=== PATIENT | female | born 1980 | race Caucasian/White ===

== ENCOUNTER 2017-03-01 16:07 | Emergency (ER) | payer OTHER ==
[~2017-03-01] VITALS: Ht 167.6 cm; Wt 85.7 kg
[~2017-03-01 16:07] MED LIST: DIPH-423 PO; METH32TA2 PO; RANI-366 PO
[2017-03-01] MEDS ORDERED: ketorolac trometh inj. 60 MG/2 ML VIAL IM ONE (16:25)
[2017-03-01] MEDS ORDERED: orphenadrine citrate 60mg/2ml inj. IM ONE (16:25)
[2017-03-01] MEDS ORDERED: ORPH100T2 PO (16:26)
[2017-03-01 16:40] VITALS: BP 137/91
[2017-03-02] MEDS ORDERED: DIAZ10TA PO (03:37)
== END 2017-03-01 16:55 | disposition home or self-care (01) ==
LOC: ER 16:08
DX: M43.6 Torticollis (principal); G43.909 Migraine, unspecified, not intractable, without status migrainosus; Z88.0 Allergy status to penicillin; Z88.5 Allergy status to narcotic agent; Z91.010 Allergy to peanuts
CPT/HCPCS: 96372; 99284; J1885; J2360

== ENCOUNTER 2017-03-02 03:09 | Emergency (ER) | payer OTHER ==
[~2017-03-02] VITALS: Ht 167.6 cm; Wt 87.1 kg
[~2017-03-02 03:09] MED LIST changes: +ORPH100T2 PO
[2017-03-02] MEDS ORDERED: diazepam 5mg tablet PO ONE (03:30)
[2017-03-02] MEDS ORDERED: ketorolac trometh. 30mg/ml inj. IM ONE (03:35)
[2017-03-02] MEDS ORDERED: DIAZ10TA PO (03:37)
[2017-03-02 03:55] VITALS: BP 134/87
== END 2017-03-02 03:58 | disposition home or self-care (01) ==
LOC: ER 03:10
DX: M62.838 Other muscle spasm (principal); M54.2 Cervicalgia; G43.909 Migraine, unspecified, not intractable, without status migrainosus; G35 Multiple sclerosis; Z98.890 Other specified postprocedural states; Z91.010 Allergy to peanuts; Z88.0 Allergy status to penicillin; Z88.5 Allergy status to narcotic agent; Z79.899 Other long term (current) drug therapy
CPT/HCPCS: 96372; 99283; J1885

== ENCOUNTER 2017-10-25 13:29 | Emergency (ER) | payer OTHER ==
[~2017-10-25] VITALS: Ht 167.6 cm; Wt 84.2 kg
[~2017-10-25 13:29] MED LIST changes: +DIAZ10TA PO
[2017-10-25] MEDS ORDERED: ketorolac trometh inj. 60 MG/2 ML VIAL IM ONE (13:50)
[2017-10-25] MEDS ORDERED: CYCL-1 PO (13:59)
[2017-10-25 14:10] VITALS: BP 116/69
== END 2017-10-25 14:24 | disposition home or self-care (01) ==
LOC: ER 13:29
DX: M43.6 Torticollis (principal); G43.909 Migraine, unspecified, not intractable, without status migrainosus; G35 Multiple sclerosis; Z98.890 Other specified postprocedural states; Z79.899 Other long term (current) drug therapy; Z88.0 Allergy status to penicillin; Z88.5 Allergy status to narcotic agent; Z91.010 Allergy to peanuts
CPT/HCPCS: 96372; 99283; J1885

== ENCOUNTER 2017-12-29 12:10 | Emergency (ER) | payer OTHER ==
[~2017-12-29] VITALS: Ht 167.6 cm; Wt 96.0 kg
[~2017-12-29 12:10] MED LIST changes: +CYCL-1 PO
[2017-12-29 12:17] VITALS: BP 130/84
[2017-12-29] MEDS ORDERED: HYDR115S PO (12:51)
== END 2017-12-29 13:04 | disposition home or self-care (01) ==
LOC: ER 12:10
DX: R09.81 Nasal congestion (principal); R09.89 Other specified symptoms and signs involving the circulatory and respiratory systems; R05 Cough; J39.2 Other diseases of pharynx; G43.909 Migraine, unspecified, not intractable, without status migrainosus; Z88.0 Allergy status to penicillin; Z88.6 Allergy status to analgesic agent; Z91.010 Allergy to peanuts; Z79.899 Other long term (current) drug therapy; Z98.890 Other specified postprocedural states
CPT/HCPCS: 99283

== ENCOUNTER 2018-01-09 10:00 | Emergency (ER) | payer OTHER ==
[~2018-01-09] VITALS: Ht 167.6 cm; Wt 87.0 kg
[~2018-01-09 10:00] MED LIST changes: +HYDR115S PO
[2018-01-09 10:01] VITALS: BP 131/69
== END 2018-01-09 12:54 | disposition home or self-care (01) ==
LOC: ER 10:01
DX: J20.9 Acute bronchitis, unspecified (principal); G43.909 Migraine, unspecified, not intractable, without status migrainosus; Z88.0 Allergy status to penicillin; Z91.010 Allergy to peanuts; Z88.6 Allergy status to analgesic agent; Z79.899 Other long term (current) drug therapy; Z98.890 Other specified postprocedural states
CPT/HCPCS: 71045; 99283

== ENCOUNTER 2018-01-16 07:52 | Emergency (ER) | payer OTHER ==
[~2018-01-16] VITALS: Ht 167.6 cm; Wt 75.0 kg
[2018-01-16 08:34] LABS: BASOPHILS % (AUTO) 0.4 % (0-1); EOSINOPHILS % (AUTO) 0.6 % (0-6); HEMATOCRIT 37.3 % (35.0-45.0); HEMOGLOBIN 12.1 g/dl (12.0-16.0); LYMPHOCYTES # (AUTO) 0.9 X10'3 (1.1-4.8); MEAN CORPUSCULAR HGB CONC 32.5 % (33.0-36.5); MEAN CORPUSCULAR VOLUME 79.9 FL (78-98); MEAN PLATELET VOLUME 8.4 FL (7.4-10.4); MONOCYTES # (AUTO) 0.4 X10'3 (0-0.9); MONOCYTES % (AUTO) 8.3 % (2-12); NEUTROPHILS # (AUTO) 3.5 X10'3 (1.8-7.7); NEUTROPHILS % (AUTO) 72.7 % (42-75); PLATELET COUNT 342 X10'3 (140-440); RED BLOOD COUNT 4.67 X10'6 (4.20-5.60); RED CELL DISTRIBUTION WIDTH 14.9 % (11.5-14.5); WHITE BLOOD COUNT 4.9 X10'3 (4.5-11.0)
[2018-01-16 08:46] LABS: ALANINE AMINOTRANSFERASE 21 U/L (12-78); ALBUMIN 3.5 G/DL (3.4-5.0); ALBUMIN/GLOBULIN RATIO 0.9 (1.1-1.5); ALKALINE PHOSPHATASE 70 IU/L (46-116); ANION GAP 11 (8-16); ASPARTATE AMINO TRANSFERASE 17 U/L (10-37); BILIRUBIN,TOTAL 0.4 MG/DL (0.1-1.0); BLOOD UREA NITROGEN 10 MG/DL (7-18); BUN/CREATININE RATIO 11.8 (6.6-38.0); CALCIUM 8.3 MG/DL (8.5-10.1); CHLORIDE 103 MMOL/L (99-107); CREATININE 0.85 MG/DL (0.40-0.90); GLUCOSE 110 MG/DL (70-104); POTASSIUM 3.2 MMOL/L (3.5-5.1); PROTHROMBIN TIME 10.3 SECONDS (9.0-12.0); SODIUM 138 MMOL/L (135-145); TOTAL PROTEIN 7.3 G/DL (6.4-8.2); eGFR 75 ML/MIN
[2018-01-16] MEDS ORDERED: normal saline 1000ML IV soln IVB ONE ×2 (08:55)
[2018-01-16] MEDS ORDERED: loperamide 2mg capsule PO ONE (08:55)
[2018-01-16] MEDS ORDERED: ondansetron/PF 4mg/2ml inj IV ONE (08:55)
[2018-01-16] MEDS ORDERED: famotidine/PF 10 mg/ml inj IV ONE (08:55)
[2018-01-16 09:27] LABS: URINE HCG NEGATIVE (NEG)
[2018-01-16 09:34] LABS: CLARITY,URINE SLIGHTLY CLOUDY (Clear); COLOR,URINE YELLOW (Yellow); GLUCOSE, URINE NEGATIVE (Neg); KETONES,URINE TRACE mg/dl (Neg); LEUKOCYTE ESTERASE ,URINE NEGATIVE (Neg); NITRITES, URINE NEGATIVE (Neg); OCCULT BLOOD,URINE TRACE-INTACT (Neg); PH,URINE 6.5 (4.8-8.0); PROTEIN,URINE NEGATIVE (Neg)
[2018-01-16 09:36] LABS: UA COLLECTION TYPE CLN CATCH MIDSTREAM
[2018-01-16 09:40] LABS: MUCUS STRANDS MODERATE /LPF (Neg); SQUAMOUS EPITHELIAL CELL,UR MODERATE /LPF (FEW)
[2018-01-16 09:41] LABS: BACTERIA,URINE 1+ /HPF (Neg); WBC,URINE 0-4 /HPF (0-4)
[2018-01-16] MEDS ORDERED: ONDA8TAB13 PO (10:31)
[2018-01-16] MEDS ORDERED: PANT-47 PO (10:31)
[2018-01-16 10:53] VITALS: BP 125/72
== END 2018-01-16 10:55 | disposition home or self-care (01) ==
LOC: ER 07:53
DX: K52.9 Noninfective gastroenteritis and colitis, unspecified (principal); E86.0 Dehydration; Z88.0 Allergy status to penicillin; Z88.6 Allergy status to analgesic agent; Z91.010 Allergy to peanuts
CPT/HCPCS: 36415; 80053; 81001; 81025; 85025; 85610; 96361; 96374; 96375; 99284; J2405; J3490; J7030

== ENCOUNTER 2018-04-11 21:38 | Emergency (ER) | payer OTHER ==
[~2018-04-11] VITALS: Ht 167.6 cm; Wt 80.0 kg
[~2018-04-11 21:38] MED LIST changes: +ONDA8TAB13 PO; +PANT-47 PO
[2018-04-11 21:41] VITALS: BP 127/76
[2018-04-11] MEDS ORDERED: ibuprofen tablet 400 MG TABLET PO ONE (22:45)
== END 2018-04-11 23:05 | disposition home or self-care (01) ==
LOC: ER 21:39
DX: S00.531A Contusion of lip, initial encounter (principal); Z98.890 Other specified postprocedural states; Z88.0 Allergy status to penicillin; Z88.5 Allergy status to narcotic agent; Z91.010 Allergy to peanuts; Z79.899 Other long term (current) drug therapy; Y04.8XXA Assault by other bodily force, initial encounter; Y93.89 Activity, other specified; Y92.89 Other specified places as the place of occurrence of the external cause; Y99.8 Other external cause status
CPT/HCPCS: 99281; 99282

== ENCOUNTER 2018-07-15 11:11 | Outpatient (CLI) | payer OTHER ==
[2018-07-15] MEDS ORDERED: iohexol 300mg/ml 100ml inj. ONE (11:47)
[2018-07-15 13:14] LABS: BASOPHILS # (AUTO) 0.1 X10'3 (0-0.2); BASOPHILS % (AUTO) 0.6 % (0-1); EOSINOPHILS # (AUTO) 0.1 X10'3 (0-0.9); EOSINOPHILS % (AUTO) 1.6 % (0-6); HEMOGLOBIN 11.7 g/dl (12.0-16.0); LYMPHOCYTES # (AUTO) 1.6 X10'3 (1.1-4.8); LYMPHOCYTES % (AUTO) 16.6 % (21-51); MEAN CORPUSCULAR HEMOGLOBIN 25.8 PG (27.0-31.0); MEAN CORPUSCULAR HGB CONC 32.4 g/dL (33.0-36.5); MEAN CORPUSCULAR VOLUME 79.4 FL (78-98); MEAN PLATELET VOLUME 8.8 FL (7.4-10.4); MONOCYTES # (AUTO) 0.6 X10'3 (0-0.9); MONOCYTES % (AUTO) 6.2 % (2-12); PLATELET COUNT 307 X10'3 (140-440); RED BLOOD COUNT 4.53 X10'6 (4.20-5.60); RED CELL DISTRIBUTION WIDTH 16.7 % (11.5-14.5); WHITE BLOOD COUNT 9.4 X10'3 (4.5-11.0)
[2018-07-15 13:17] LABS: CLARITY,URINE CLEAR (Clear); COLOR,URINE STRAW (Yellow); GLUCOSE, URINE NEGATIVE (Neg); KETONES,URINE NEGATIVE (Neg); LEUKOCYTE ESTERASE ,URINE NEGATIVE (Neg); NITRITES, URINE NEGATIVE (Neg); OCCULT BLOOD,URINE NEGATIVE (Neg); PH,URINE 6.5 (4.8-8.0); PROTEIN,URINE NEGATIVE (Neg); UROBILINOGEN,URINE 0.2 E.U/dL (0.2-1.0)
[2018-07-15 13:25] LABS: UA COLLECTION TYPE CLN CATCH MIDSTREAM
[2018-07-15 13:28] LABS: ALANINE AMINOTRANSFERASE 18 U/L (12-78); ALBUMIN 3.6 G/DL (3.4-5.0); ALBUMIN/GLOBULIN RATIO 1.1 (1.1-1.5); ALKALINE PHOSPHATASE 54 IU/L (46-116); ANION GAP 6 (8-16); ASPARTATE AMINO TRANSFERASE 11 U/L (10-37); BILIRUBIN,TOTAL 0.3 MG/DL (0.1-1.0); BLOOD UREA NITROGEN 8 MG/DL (7-18); BUN/CREATININE RATIO 11.8 (6.6-38.0); CALCIUM 8.6 MG/DL (8.5-10.1); CHLORIDE 104 MMOL/L (99-107); CHOL/HDL RATIO 2.4 (0.00-4.99); CHOLESTEROL 140 MG/DL (0-200); CREATININE 0.68 MG/DL (0.40-0.90); GLUCOSE 85 MG/DL (70-104); HDL CHOLESTEROL 58 MG/DL (35-60); LDL CHOLESTEROL 72 MG/DL (50-100); POTASSIUM 3.7 MMOL/L (3.5-5.1); SODIUM 137 MMOL/L (135-145); TOTAL CARBON DIOXIDE 27.3 MMOL/L (24-32); TOTAL PROTEIN 6.8 G/DL (6.4-8.2); TRIGLYCERIDES 35 MG/DL (20-135); eGFR > 90 ML/MIN
== END 2018-07-15 23:59 | disposition home or self-care (01) ==
LOC: 64 CT 11:11
PROVIDERS: ATTEND Family Medicine
DX: G35 Multiple sclerosis (principal); F41.9 Anxiety disorder, unspecified; Z76.89 Persons encountering health services in other specified circumstances; Z98.890 Other specified postprocedural states
CPT/HCPCS: 36415; 70470; 80053; 80061; 81003; 84439; 84443; 85025; Q9967

== ENCOUNTER 2018-09-30 16:43 | Emergency (ER) | payer OTHER ==
[~2018-09-30] VITALS: Ht 167.6 cm; Wt 80.0 kg
[2018-09-30 17:16] VITALS: BP 117/69
[2018-09-30] MEDS ORDERED: CYCL-1 PO (17:34)
== END 2018-09-30 18:14 | disposition home or self-care (01) ==
LOC: ER 16:43
DX: S13.4XXA Sprain of ligaments of cervical spine, initial encounter (principal); M54.5 Low back pain; G43.909 Migraine, unspecified, not intractable, without status migrainosus; G35 Multiple sclerosis; Z98.890 Other specified postprocedural states; Z91.010 Allergy to peanuts; Z88.0 Allergy status to penicillin; Z88.5 Allergy status to narcotic agent; Z79.899 Other long term (current) drug therapy; V29.59XA Motorcycle passenger injured in collision with other motor vehicles in traffic accident, initial encounter; Y93.89 Activity, other specified; Y92.488 Other paved roadways as the place of occurrence of the external cause; Y99.8 Other external cause status
CPT/HCPCS: 99283

== ENCOUNTER 2019-03-09 22:07 | Emergency (ER) | payer OTHER ==
[~2019-03-09] VITALS: Ht 167.6 cm; Wt 84.0 kg
[2019-03-09 22:14] VITALS: BP 120/75
[2019-03-09 22:58] LABS: ALANINE AMINOTRANSFERASE 22 U/L (12-78); ALBUMIN 3.8 G/DL (3.4-5.0); ALKALINE PHOSPHATASE 69 IU/L (46-116); ANION GAP 12 (8-16); ASPARTATE AMINO TRANSFERASE 17 U/L (10-37); BILIRUBIN,TOTAL 0.3 MG/DL (0.1-1.0); BLOOD UREA NITROGEN 14 MG/DL (7-18); BUN/CREATININE RATIO 16.9 (6.6-38.0); CALCIUM 8.6 MG/DL (8.5-10.1); CHLORIDE 103 MMOL/L (99-107); CREATININE 0.83 MG/DL (0.40-0.90); GLUCOSE 104 MG/DL (70-104); POTASSIUM 3.4 MMOL/L (3.5-5.1); SODIUM 138 MMOL/L (135-145); TOTAL CARBON DIOXIDE 23.2 MMOL/L (24-32); TOTAL PROTEIN 7.5 G/DL (6.4-8.2); eGFR 77 ML/MIN
[2019-03-09 23:03] LABS: BASOPHILS # (AUTO) 0.1 X10'3 (0-0.2); BASOPHILS % (AUTO) 0.6 % (0-1); EOSINOPHILS # (AUTO) 0.1 X10'3 (0-0.9); EOSINOPHILS % (AUTO) 0.6 % (0-6); HEMATOCRIT 33.9 % (35.0-45.0); HEMOGLOBIN 10.9 g/dl (12.0-16.0); LYMPHOCYTES # (AUTO) 2.4 X10'3 (1.1-4.8); LYMPHOCYTES % (AUTO) 19.9 % (21-51); MEAN CORPUSCULAR HEMOGLOBIN 24.4 PG (27.0-31.0); MEAN CORPUSCULAR HGB CONC 32.2 g/dL (33.0-36.5); MEAN CORPUSCULAR VOLUME 75.8 FL (78-98); MEAN PLATELET VOLUME 8.4 FL (7.4-10.4); MONOCYTES # (AUTO) 0.5 X10'3 (0-0.9); MONOCYTES % (AUTO) 4.6 % (2-12); NEUTROPHILS # (AUTO) 8.8 X10'3 (1.8-7.7); NEUTROPHILS % (AUTO) 74.3 % (42-75); PLATELET COUNT 346 X10'3 (140-440); RED BLOOD COUNT 4.47 X10'6 (4.20-5.60); RED CELL DISTRIBUTION WIDTH 17.4 % (11.5-14.5); WHITE BLOOD COUNT 11.8 X10'3 (4.5-11.0)
[2019-03-09] MEDS ORDERED: normal saline 1000ML IV soln IVB ONE (23:05)
[2019-03-09] MEDS ORDERED: ondansetron/PF 4mg/2ml inj IV ONE (23:15)
== END 2019-03-10 00:53 | disposition home or self-care (01) ==
LOC: ER 22:09
DX: R07.89 Other chest pain (principal); R55 Syncope and collapse; G43.909 Migraine, unspecified, not intractable, without status migrainosus; G35 Multiple sclerosis; Z98.890 Other specified postprocedural states; Z98.51 Tubal ligation status; Z91.010 Allergy to peanuts; Z88.0 Allergy status to penicillin; Z88.5 Allergy status to narcotic agent; Z79.899 Other long term (current) drug therapy
CPT/HCPCS: 36415; 71045; 80053; 84484; 85025; 93005; 96361; 96374; 99284; J2405; J7030

== ENCOUNTER 2019-04-10 01:53 | Emergency (ER) | payer OTHER ==
[~2019-04-10] VITALS: Ht 167.6 cm; Wt 86.4 kg
[~2019-04-10 01:53] MED LIST changes: +dexamethasone sod phosphate 10mg/ml inj PO STA
[2019-04-10] MEDS ORDERED: ipratropium/albuterol 3ml nebule NEB ONE (01:55)
[2019-04-10] MEDS ORDERED: benzonatate 100mg capsule PO ONE (01:55)
[2019-04-10 02:02] VITALS: BP 105/7
== END 2019-04-10 02:55 | disposition home or self-care (01) ==
LOC: ER 01:53
DX: R05 Cough (principal); R06.02 Shortness of breath; R06.2 Wheezing; R09.81 Nasal congestion; G35 Multiple sclerosis; Z98.51 Tubal ligation status; Z98.890 Other specified postprocedural states; Z88.0 Allergy status to penicillin; Z88.5 Allergy status to narcotic agent; Z91.010 Allergy to peanuts; Z79.899 Other long term (current) drug therapy
CPT/HCPCS: 71045; 94640; 99283; J1100; 94760

== ENCOUNTER 2019-09-22 16:31 | Emergency (ER) | payer OTHER ==
[~2019-09-22] VITALS: Ht 167.6 cm; Wt 92.0 kg
[~2019-09-22 16:31] MED LIST changes: -dexamethasone sod phosphate 10mg/ml inj PO STA
[2019-09-22 16:34] VITALS: BP 131/82
== END 2019-09-22 17:31 | disposition home or self-care (01) ==
LOC: ER 16:32
DX: S40.811A Abrasion of right upper arm, initial encounter (principal); F03.90 Unspecified dementia, unspecified severity, without behavioral disturbance, psychotic disturbance, mood disturbance, and anxiety; G35 Multiple sclerosis; Z77.21 Contact with and (suspected) exposure to potentially hazardous body fluids; Z98.51 Tubal ligation status; Z98.890 Other specified postprocedural states; Z88.0 Allergy status to penicillin; Z88.5 Allergy status to narcotic agent; Z91.010 Allergy to peanuts; Z79.899 Other long term (current) drug therapy; W50.4XXA Accidental scratch by another person, initial encounter; Y93.89 Activity, other specified; Y92.89 Other specified places as the place of occurrence of the external cause; Y99.8 Other external cause status
CPT/HCPCS: 99282

== ENCOUNTER 2019-10-10 08:24 | Emergency (ER) | payer BC, OTHER ==
[~2019-10-10] VITALS: Ht 167.6 cm; Wt 88.6 kg
[2019-10-10 08:26] VITALS: BP 137/78
[2019-10-10] MEDS ORDERED: ONDA4TAB6 PO (09:09)
== END 2019-10-10 09:20 | disposition home or self-care (01) ==
LOC: EEVIPCON 08:25 → ER 08:25
DX: R50.9 Fever, unspecified (principal); R11.2 Nausea with vomiting, unspecified; R53.83 Other fatigue; G43.909 Migraine, unspecified, not intractable, without status migrainosus; Z98.51 Tubal ligation status; Z98.890 Other specified postprocedural states; Z88.0 Allergy status to penicillin; Z88.5 Allergy status to narcotic agent; Z91.010 Allergy to peanuts; Z79.899 Other long term (current) drug therapy
CPT/HCPCS: 36415; 99283

== ENCOUNTER 2020-06-09 08:54 | Outpatient (CLI) | payer BC ==
[~2020-06-09 08:54] MED LIST changes: +ONDA4TAB6 PO
[2020-06-09 09:47] LABS: CLARITY,URINE CLEAR (Clear); COLOR,URINE YELLOW (Yellow); GLUCOSE, URINE NEGATIVE (Neg); KETONES,URINE NEGATIVE (Neg); LEUKOCYTE ESTERASE ,URINE NEGATIVE (Neg); NITRITES, URINE NEGATIVE (Neg); OCCULT BLOOD,URINE TRACE-INTACT (Neg); PH,URINE 5.5 (4.8-8.0); PROTEIN,URINE NEGATIVE (Neg); UROBILINOGEN,URINE 0.2 E.U/dL (0.2-1.0)
[2020-06-09 09:47] LABS: BASOPHILS # (AUTO) 0.1 X10'3 (0-0.2); EOSINOPHILS # (AUTO) 0.1 X10'3 (0-0.9); EOSINOPHILS % (AUTO) 2.3 % (0-6); HEMATOCRIT 38.5 % (35.0-45.0); HEMOGLOBIN 12.9 g/dl (12.0-16.0); LYMPHOCYTES # (AUTO) 1.4 X10'3 (1.1-4.8); LYMPHOCYTES % (AUTO) 21.9 % (21-51); MEAN CORPUSCULAR HEMOGLOBIN 29.6 PG (27.0-31.0); MEAN CORPUSCULAR HGB CONC 33.5 g/dL (33.0-36.5); MEAN CORPUSCULAR VOLUME 88.2 FL (78-98); MONOCYTES # (AUTO) 0.5 X10'3 (0-0.9); MONOCYTES % (AUTO) 7.2 % (2-12); NEUTROPHILS # (AUTO) 4.3 X10'3 (1.8-7.7); NEUTROPHILS % (AUTO) 67.6 % (42-75); PLATELET COUNT 286 X10'3 (140-440); RED BLOOD COUNT 4.36 X10'6 (4.20-5.60); RED CELL DISTRIBUTION WIDTH 13.7 % (11.5-14.5); WHITE BLOOD COUNT 6.4 X10'3 (4.5-11.0)
[2020-06-09 09:57] LABS: UA COLLECTION TYPE CLN CATCH MIDSTREAM
[2020-06-09 09:58] LABS: BACTERIA,URINE FEW /HPF (Neg); HYALINE CASTS 0-3 /LPF (NEGATIVE); MUCUS STRANDS MODERATE /LPF (Neg); RBC,URINE 0-2 /HPF (0-2); SQUAMOUS EPITHELIAL CELL,UR MANY /LPF (FEW); WBC,URINE 0-4 /HPF (0-4)
[2020-06-09 10:07] LABS: ALANINE AMINOTRANSFERASE 23 U/L (12-78); ALBUMIN 3.4 G/DL (3.4-5.0); ALKALINE PHOSPHATASE 79 IU/L (46-116); ANION GAP 10 (8-16); ASPARTATE AMINO TRANSFERASE 18 U/L (10-37); BILIRUBIN,TOTAL 0.4 MG/DL (0.1-1.0); BLOOD UREA NITROGEN 12 MG/DL (7-18); BUN/CREATININE RATIO 17.9 (6.6-38.0); CALCIUM 8.4 MG/DL (8.5-10.1); CHLORIDE 108 MMOL/L (99-107); CHOL/HDL RATIO 2.4 (0.00-4.99); CHOLESTEROL 178 MG/DL (0-200); CREATININE 0.67 MG/DL (0.40-0.90); GLUCOSE 95 MG/DL (70-104); HDL CHOLESTEROL 73 MG/DL (35-60); LDL CHOLESTEROL 97 MG/DL (50-100); POTASSIUM 3.9 MMOL/L (3.5-5.1); SODIUM 143 MMOL/L (135-145); TOTAL CARBON DIOXIDE 24.6 MMOL/L (24-32); TOTAL PROTEIN 6.9 G/DL (6.4-8.2); TRIGLYCERIDES 53 MG/DL (20-135); eGFR > 90 ML/MIN
== END 2020-06-09 23:59 | disposition home or self-care (01) ==
LOC: LAB 08:54
PROVIDERS: ATTEND Family Medicine
DX: D64.9 Anemia, unspecified (principal); R53.83 Other fatigue; E07.9 Disorder of thyroid, unspecified; E78.5 Hyperlipidemia, unspecified; N30.90 Cystitis, unspecified without hematuria
CPT/HCPCS: 36415; 80053; 80061; 81001; 84439; 84443; 85025

== ENCOUNTER → 2020-08-16 | Day surgery (SDC) | payer BC ==
[2020-08-10 15:06] LABS: BASOPHILS % (AUTO) 0.5 % (0-1); EOSINOPHILS # (AUTO) 0.1 X10'3 (0-0.9); EOSINOPHILS % (AUTO) 1.5 % (0-6); LYMPHOCYTES % (AUTO) 11.8 % (21-51); MEAN CORPUSCULAR HEMOGLOBIN 30.4 PG (27.0-31.0); MEAN CORPUSCULAR HGB CONC 33.5 g/dL (33.0-36.5); MEAN CORPUSCULAR VOLUME 90.8 FL (78-98); MEAN PLATELET VOLUME 8.5 FL (7.4-10.4); MONOCYTES # (AUTO) 0.6 X10'3 (0-0.9); MONOCYTES % (AUTO) 6.3 % (2-12); NEUTROPHILS # (AUTO) 7.1 X10'3 (1.8-7.7); NEUTROPHILS % (AUTO) 79.9 % (42-75); PRE OP HEMATOCRIT 40.8 % (35.0-45.0); PRE OP HEMOGLOBIN 13.7 g/dL (12.0-16.0); PRE OP PLATELET COUNT 291 X10'3 (140-440); RED BLOOD COUNT 4.49 X10'6 (4.20-5.60); RED CELL DISTRIBUTION WIDTH 13.7 % (11.5-14.5)
[2020-08-10 15:18] LABS: PRE OP PROTIME 10.3 SECONDS (9.0-12.0)
[2020-08-10 15:21] LABS: ALBUMIN 3.6 G/DL (3.4-5.0); ALKALINE PHOSPHATASE 73 IU/L (46-116); BLOOD UREA NITROGEN 8 MG/DL (7-18); BUN/CREATININE RATIO 11.3 (6.6-38.0); CALCIUM 8.9 MG/DL (8.5-10.1); CHLORIDE 109 MMOL/L (99-107); CREATININE 0.71 MG/DL (0.40-0.90); PRE OP ALT 23 U/L (30-65); PRE OP ANION GAP 8 (8-16); PRE OP AST 10 U/L (10-37); PRE OP BILIRUB, TOTAL 0.3 MG/DL (0.0-1.0); PRE OP GLUCOSE 85 MG/DL (70-104); PRE OP POTASSIUM 3.4 MMOL/L (3.4-5.1); PRE OP SODIUM 143 MMOL/L (135-145); TOTAL CARBON DIOXIDE 26.3 MMOL/L (24-32); TOTAL PROTEIN 7.1 G/DL (6.4-8.2); eGFR > 90 ML/MIN
[2020-08-10 15:47] LABS: CLARITY,URINE CLOUDY (Clear); COLOR,URINE YELLOW (Yellow); GLUCOSE, URINE NEGATIVE (Neg); KETONES,URINE NEGATIVE (Neg); LEUKOCYTE ESTERASE ,URINE NEGATIVE (Neg); NITRITES, URINE POSITIVE (Neg); OCCULT BLOOD,URINE SMALL (Neg); PROTEIN,URINE NEGATIVE (Neg); UROBILINOGEN,URINE 0.2 E.U/dL (0.2-1.0)
[2020-08-10 15:47] LABS: HCG SERUM QL NEGATIVE
[2020-08-10 15:53] LABS: UA COLLECTION TYPE NON-SPECIFIED
[2020-08-10 15:54] LABS: BACTERIA,URINE 4+ /HPF (Neg); SQUAMOUS EPITHELIAL CELL,UR MANY /LPF (FEW)
[~2020-08-16] VITALS: Ht 167.6 cm; Wt 94.9 kg
[2020-08-16] VITALS (13 sets, daily range): BP systolic 117–145; BP diastolic 67–95
[~2020-08-16] MED LIST changes: -CYCL-1 PO; -DIAZ10TA PO; -DIPH-423 PO; +GENTAMICIN IV ONE; -HYDR115S PO; +LIDOcaine 2% (20mg/ml) 5ml vial ONE; -METH32TA2 PO; +NO HOME MEDS; +NORMAL SALINE IV ONE; -ONDA4TAB6 PO; -ONDA8TAB13 PO; -ORPH100T2 PO; -PANT-47 PO; -RANI-366 PO; +dexamethasone sod phosphate 4mg/ml inj. ONE; +famotidine 20mg tablet PO ONE; +fentaNYL/PF 50MCG/1 ML 2ML syringe ONE; +meperidine/PF 25mg/ml syringe IV PRN; +midazolam 1 mg/ML 2ml injection ONE; +morphine 2 MG/ML inj. syringe IV PRN; +morphine 4 MG/ML inj SYRINge IV PRN; +ondansetron/PF 4mg/2ml inj IV PRN; +ondansetron/PF 4mg/2ml inj ONE; +proCHLORperazine 10 MG/2 ml inj IV PRN; +propofol inj 20 ML IV ONE; +ringers solution, lacted 1,000 ML IV SCH; +sevoflurane 250ml liquid IH ONE; +vancomycin 1,500 MG in NS 300ml IV soln IV ONE
--- NOTE | 2020-08-16 07:49 | NUR ---
Received from OR via , accompanied by Anesthesiologist DR BARTLETT and report given by Anesthesiolgist. PT PRESENTS WITH PIV IN LEFT FOREARM, VSS. Addendum: 08/16/20 at 0802 by Kiana Stephens RN, RN Amended: Links added.
[2020-08-16] MEDS: meperidine/PF 25mg/ml syringe IV PRN ×2 (08:08→08:31)
== END | disposition home or self-care (01) ==
LOC: PAS 05:32
PROVIDERS: ATTEND Obstetrics & Gynecology
DX: N93.9 Abnormal uterine and vaginal bleeding, unspecified (principal); Z20.822 Contact with and (suspected) exposure to COVID-19; Z79.899 Other long term (current) drug therapy; Z79.01 Long term (current) use of anticoagulants; Z88.5 Allergy status to narcotic agent; Z88.0 Allergy status to penicillin; Z91.010 Allergy to peanuts; Z98.890 Other specified postprocedural states
CPT/HCPCS: 36415; 58353; 80053; 81001; 82948; 84703; 85025; 85610; 85730; 86885; 86900; 86901; J1100; J1580; J2001; J2175; J2250; J2405; J2704; J3010; J3370; J7030; J7040; U0003; U0005; A4355; A4618; A4649; J7120

== ENCOUNTER 2020-09-13 12:59 | Emergency (ER) | payer BC ==
[~2020-09-13] VITALS: Ht 167.6 cm; Wt 94.3 kg
[~2020-09-13 12:59] MED LIST changes: -GENTAMICIN IV ONE; -LIDOcaine 2% (20mg/ml) 5ml vial ONE; -NORMAL SALINE IV ONE; -dexamethasone sod phosphate 4mg/ml inj. ONE; -famotidine 20mg tablet PO ONE; -fentaNYL/PF 50MCG/1 ML 2ML syringe ONE; -meperidine/PF 25mg/ml syringe IV PRN; -midazolam 1 mg/ML 2ml injection ONE; -morphine 2 MG/ML inj. syringe IV PRN; -morphine 4 MG/ML inj SYRINge IV PRN; -ondansetron/PF 4mg/2ml inj IV PRN; -ondansetron/PF 4mg/2ml inj ONE; -proCHLORperazine 10 MG/2 ml inj IV PRN; -propofol inj 20 ML IV ONE; -ringers solution, lacted 1,000 ML IV SCH; -sevoflurane 250ml liquid IH ONE; -vancomycin 1,500 MG in NS 300ml IV soln IV ONE
[2020-09-13] MEDS ORDERED: ondansetron/PF 4mg/2ml inj IV ONE (13:15)
[2020-09-13] MEDS ORDERED: normal saline 1000ML IV soln IVB ONE (13:15)
[2020-09-13 14:29] LABS: BASOPHILS # (AUTO) 0.1 X10'3 (0-0.2); BASOPHILS % (AUTO) 0.6 % (0-1); EOSINOPHILS # (AUTO) 0.1 X10'3 (0-0.9); EOSINOPHILS % (AUTO) 1.3 % (0-6); HEMATOCRIT 43.3 % (35.0-45.0); HEMOGLOBIN 14.4 g/dl (12.0-16.0); LYMPHOCYTES # (AUTO) 1.8 X10'3 (1.1-4.8); LYMPHOCYTES % (AUTO) 18.3 % (21-51); MEAN CORPUSCULAR HEMOGLOBIN 29.6 PG (27.0-31.0); MEAN CORPUSCULAR HGB CONC 33.3 g/dL (33.0-36.5); MEAN CORPUSCULAR VOLUME 89.1 FL (78-98); MEAN PLATELET VOLUME 8.1 FL (7.4-10.4); MONOCYTES # (AUTO) 0.6 X10'3 (0-0.9); MONOCYTES % (AUTO) 5.8 % (2-12); NEUTROPHILS # (AUTO) 7.4 X10'3 (1.8-7.7); PLATELET COUNT 328 X10'3 (140-440); RED BLOOD COUNT 4.86 X10'6 (4.20-5.60); RED CELL DISTRIBUTION WIDTH 13.3 % (11.5-14.5)
[2020-09-13 14:49] LABS: ALANINE AMINOTRANSFERASE 26 U/L (12-78); ALBUMIN 3.6 G/DL (3.4-5.0); ALBUMIN/GLOBULIN RATIO 0.9 (1.1-1.5); ALKALINE PHOSPHATASE 82 IU/L (46-116); ANION GAP 9 (8-16); ASPARTATE AMINO TRANSFERASE 14 U/L (10-37); BILIRUBIN,TOTAL 0.5 MG/DL (0.1-1.0); BLOOD UREA NITROGEN 10 MG/DL (7-18); BUN/CREATININE RATIO 14.3 (6.6-38.0); CALCIUM 8.7 MG/DL (8.5-10.1); CHLORIDE 106 MMOL/L (99-107); GLUCOSE 86 MG/DL (70-104); LIPASE 66 U/L (73-393); POTASSIUM 4.1 MMOL/L (3.5-5.1); SODIUM 140 MMOL/L (135-145); TOTAL CARBON DIOXIDE 24.8 MMOL/L (24-32); TOTAL PROTEIN 7.8 G/DL (6.4-8.2); eGFR > 90 ML/MIN
[2020-09-13 15:52] VITALS: BP 112/66
== END 2020-09-13 18:33 | disposition home or self-care (01) ==
LOC: EEVIPCON 13:00 → ER 13:00
DX: R10.31 Right lower quadrant pain (principal); R10.2 Pelvic and perineal pain; G43.909 Migraine, unspecified, not intractable, without status migrainosus; Z98.51 Tubal ligation status; Z98.890 Other specified postprocedural states; Z88.0 Allergy status to penicillin; Z88.5 Allergy status to narcotic agent; Z91.010 Allergy to peanuts
CPT/HCPCS: 36415; 74176; 76856; 80053; 83690; 85025; 93976; 96374; 99285; J2405; J7030